=== PATIENT | male | born 1965 | race Caucasian/White ===

== ENCOUNTER 2020-06-27 12:16 | Inpatient (IN) ==
[2020-06-27] MEDS ORDERED: NS 0.9% 1000 ml BAG 1,000 ML IV ONE (13:14)
[2020-06-27] MEDS ORDERED: Ondansetron 4 mg VIAL 2 MG/ML 2 ml VIAL IV ONE (13:15)
[2020-06-27 13:16] LABS: ABS Basophils 0.1 10^3/ul (0-0.2); ABS Lymphocytes 3.7 10^3/ul (1.0-4.8); ABS Monocytes 0.7 10^3/ul (0-0.8); ABS Neutrophils 3.7 10^3/ul (1.5-7.7); Eosinophil % 0.6 %; Hematocrit 42 % (42-52); Hemoglobin 14.5 g/dL (14.0-18.0); Lymphocyte % 45.3 %; Mean Corpuscular HGB Conc 35 g/dL (31-36); Mean Corpuscular Hemoglobin 32 pg (27-31); Mean Corpuscular Volume 92 fL (80-94); Mean Platelet Volume 7.4 fL (7.4-10.4); Platelet Count 194 10^3/uL (150-450); Red Blood Count 4.59 10^6 /uL (4.18-5.48); Red Cell Distribution Width 13 % (10-15); White Blood Count 8.3 10^3/uL (3.5-10.8)
[2020-06-27 13:30] LABS: ALT 27 U/L (7-52); AST 24 U/L (13-39); Albumin 4.5 g/dL (3.2-5.2); Albumin/Globulin Ratio 1.7 (1-3); Alkaline Phosphatase 35 U/L (34-104); Anion Gap 14 mmol/L (2-11); BUN/Creatinine Ratio 13.2 (8-20); Blood Urea Nitrogen 32 mg/dL (6-24); CO2 Carbon Dioxide 22 mmol/L (22-32); Calcium 8.7 mg/dL (8.6-10.3); Chloride 98 mmol/L (101-111); EGFR African American 33.9 (>60); Globulin 2.6 g/dL (2-4); Glucose 86 mg/dL (70-100); Sodium 134 mmol/L (135-145); Total Protein 7.1 g/dL (6.4-8.9)
[2020-06-27 14:27] LABS: Acetaminophen < 15 mcg/mL; Alcohol, S 92 mg/dL (<10); Salicylate < 2.50 mg/dL (<30)
[2020-06-27] MEDS ORDERED: Potassium Chlor 20 meq TAB.ER PO ONE (14:31)
[2020-06-27 14:42] LABS: TSH Ultra Thyroid Stim Horm 1.61 mcIU/mL (0.34-5.60)
[2020-06-27] MEDS ORDERED: Lactated Ringers 1000 ml BAG 1,000 ML IV ONE (16:02)
[2020-06-27 18:00] LABS: Magnesium 1.8 mg/dL (1.9-2.7)
[2020-06-27 18:05] LABS: Creatine Kinase 361 U/L (10-223)
[2020-06-27 19:19] LABS: INR 1.11 (0.82-1.09)
[2020-06-27 19:32] LABS: BUN/Creatinine Ratio 13.5 (8-20); Calcium 8.5 mg/dL (8.6-10.3); EGFR African American 31.2 (>60); EGFR Non-African American 25.8 (>60); Potassium 3.5 mmol/L (3.5-5.0)
[2020-06-27] MEDS: Mometasone/Formoter 200/5 MDI INH SCH (19:34)
[2020-06-27] MEDS ORDERED: Calcium Carb (TUMS) 500 mg CHEW TAB PO PRN (23:16)
[2020-06-28 00:46] LABS: Urine Appearance Cloudy; Urine Bilirubin Negative (Negative); Urine Blood Negative (Negative); Urine Color Yellow; Urine Glucose Negative (Negative); Urine Ketones Trace (Negative); Urine Nitrite Negative (Negative); Urine Protein Negative (Negative); Urine Specific Gravity 1.016 (1.010-1.030); Urine Urobilinogen Negative (Negative)
[2020-06-28 00:53] LABS: Urine Benzodiazepine Screen None Detected (None Detect); Urine Cannabinoids Screen None Detected (None Detect); Urine Opiates Screen Presumptive Positive (None Detect)
[2020-06-28 06:00] LABS: ABS Eosinophils 0.1 10^3/ul (0-0.6); ABS Lymphocytes 1.9 10^3/ul (1.0-4.8); ABS Monocytes 0.5 10^3/ul (0-0.8); ABS Neutrophils 5.7 10^3/ul (1.5-7.7); Eosinophil % 1.3 %; Hematocrit 40 % (42-52); Hemoglobin 13.9 g/dL (14.0-18.0); Lymphocyte % 22.4 %; Mean Corpuscular HGB Conc 35 g/dL (31-36); Mean Corpuscular Hemoglobin 32 pg (27-31); Mean Corpuscular Volume 92 fL (80-94); Mean Platelet Volume 6.9 fL (7.4-10.4); Nucleated Red Blood Cells % 0.1; Platelet Count 167 10^3/uL (150-450); Red Blood Count 4.36 10^6 /uL (4.18-5.48); Red Cell Distribution Width 13 % (10-15); White Blood Count 8.3 10^3/uL (3.5-10.8)
[2020-06-28 06:15] LABS: BUN/Creatinine Ratio 17.5 (8-20); Calcium 8.6 mg/dL (8.6-10.3); EGFR African American 48.6 (>60); EGFR Non-African American 40.1 (>60); Potassium 4.1 mmol/L (3.5-5.0)
[2020-06-28] MEDS ORDERED: Magnesium Sulfate IV 1GM/100ML 1 GM/100 ML BAG IV ONE (08:01)
[2020-06-28] MEDS: Mometasone/Formoter 200/5 MDI INH SCH ×2 (08:09→21:19)
[2020-06-29 08:03] LABS: HDL Cholesterol 39.4 mg/dL
[2020-06-29] MEDS: Mometasone/Formoter 200/5 MDI INH SCH ×2 (09:19→19:59)
[2020-06-30 08:34] VITALS: BP 126/79
[2020-06-30] MEDS: Mometasone/Formoter 200/5 MDI INH SCH (08:52)
== END 2020-06-30 12:30 | disposition home or self-care (01) | DRG 751 ==
LOC: ED 12:16 → MEDTELE 12:16 → UNDODISOB 06-28 14:42 → BSU 06-28 14:55
PROVIDERS: ADMIT Internal Medicine; ATTEND Psychiatry & Neurology Psychiatry